=== PATIENT | female | born 1995 | race Caucasian/White ===

== ENCOUNTER 2016-04-25 16:25 | Inpatient (IN) | payer BC ==
[2016-04-25] MEDS ORDERED: ACETAMINOPHEN TAB 500 MG TAB PO STA (17:18)
--- NOTE | 2016-04-25 17:29 | ED ---
Psych HPI - General Chief Complaint: Psychiatric Symptoms Stated Complaint: Mental Health Time Seen by Provider: 04/25/16 16:35 Source: patient, EMS, RN notes reviewed Mode of arrival: EMS - History of Present Illness Initial Comments: Patient is a 20-year-old female presents emergency room for psychiatric evaluation. Patient states she's been very depressed over the past few months. Patient denies any history of depression. Patient states she's on medications for ADD. Patient states she went and saw her counselor today because of increased depression and suicidal thoughts. Patient states that she was sent here by her counselor for further evaluation. Patient states she's been having continuous thoughts and wanted to end her life. Patient denies any specific plan. Patient denies homicidal ideations. Patient denies visual or auditory hallucinations. Patient denies any significant past medical history. Patient does admit that she's been having headache from crying. Patient denies dizziness, chest pain, shortness of breath, nausea, vomiting, abdominal pain, consultation, diarrhea, fevers, chills. - Related Data Home Medications Medication Instructions Recorded Confirmed Methylphenidate HCl [Concerta] 54 mg PO DAILY 04/25/16 04/25/16 Allergies Allergy/AdvReac Type Severity Reaction Status Date / Time No Known Allergies Allergy Verified 04/25/16 16:55 Review of Systems ROS Statement: Those systems with pertinent positive or pertinent negative responses have been documented in the HPI. ROS Other: All systems not noted in ROS Statement are negative. Past Medical History Past Medical History: No Reported History History of Any Multi-Drug Resistant Organisms: None Reported Past Surgical History: No Surgical Hx Reported Past Psychological History: ADD/ADHD Smoking Status: Never smoker Past Alcohol Use History: None Reported Past Drug Use History: None Reported General Exam - General Exam Comments Initial Comments: Sitting in exam room, tearful, no acute distress. Limitations: no limitations General appearance: alert, in no apparent distress Head exam: Present: atraumatic, normocephalic, normal inspection Eye exam: Present: normal appearance ENT exam: Present: normal exam Neck exam: Present: normal inspection Respiratory exam: Present: normal lung sounds bilaterally. Absent: respiratory distress Cardiovascular Exam: Present: regular rate, normal rhythm, normal heart sounds GI/Abdominal exam: Present: soft, normal bowel sounds. Absent: distended, tenderness, guarding, rebound, rigid Extremities exam: Present: normal inspection Back exam: Present: normal inspection Neurological exam: Present: alert, oriented X3, CN II-XII intact, normal gait Psychiatric exam: Present: normal affect, depressed Skin exam: Present: warm, dry, intact, normal color. Absent: rash Course Vital Signs 04/25/16 16:25 Temperature 97.9 F Pulse Rate 95 Respiratory 20 Rate Blood Pressure 116/70 O2 Sat by Pulse 100 Oximetry Medical Decision Making - Medical Decision Making Patient is a 20-year-old female since emergency room for psychiatric evaluation. Patient is medically cleared for psych evaluation. Patient evaluated by psych and needs admission criteria. Disposition Clinical Impression: Suicidal ideation, Depression Disposition: ADMITTED IP TO THIS HOSP Condition: Stable Decision Date: 04/25/16
[2016-04-25 20:06] VITALS: BMI 19.9
[2016-04-25] MEDS ORDERED: ZIPRASIDONE 20 MG VIAL IM PRN (21:38)
[2016-04-25] MEDS ORDERED: ACETAMINOPHEN TAB 325 MG TAB PO PRN (21:38)
[2016-04-25] MEDS ORDERED: MAG HYDROX/AL HYDROX/SIMETH 30 ML CUP PO PRN (21:38)
[2016-04-25] MEDS ORDERED: LORazepam 2 MG/ML SYRINGE IM PRN (21:40)
[2016-04-25] MEDS ORDERED: LORazepam 1 MG TAB PO PRN (21:40)
--- NOTE | 2016-04-26 08:40 | P.HP ---
Psychiatric H&P - . History & Physical: Allergies Allergy/AdvReac Type Severity Reaction Status Date / Time No Known Allergies Allergy Verified 04/25/16 20:12 Vital Signs Temp 98.4 F 04/26/16 06:29 Pulse 81 04/26/16 06:29 Resp 16 04/26/16 06:29 BP 102/56 04/26/16 06:29 Pulse Ox 96 04/25/16 20:17 Intake & Output 04/25/16 04/26/16 04/26/16 18:59 06:59 18:59 Weight 57.8 kg Laboratory Last Values Urine HCG, Qual Not Detected (Not Detectd) 04/25/16 19:30 Urine Opiates Screen Not Detected (NotDetected) 04/25/16 19:30 Ur Oxycodone Screen Not Detected (NotDetected) 04/25/16 19:30 Urine Methadone Screen Not Detected (NotDetected) 04/25/16 19:30 Ur Propoxyphene Screen Not Detected (NotDetected) 04/25/16 19:30 Ur Barbiturates Screen Not Detected (NotDetected) 04/25/16 19:30 U Tricyclic Antidepress Not Detected (NotDetected) 04/25/16 19:30 Ur Phencyclidine Scrn Not Detected (NotDetected) 04/25/16 19:30 Ur Amphetamines Screen Not Detected (NotDetected) 04/25/16 19:30 U Methamphetamines Scrn Not Detected (NotDetected) 04/25/16 19:30 U Benzodiazepines Scrn Not Detected (NotDetected) 04/25/16 19:30 Urine Cocaine Screen Not Detected (NotDetected) 04/25/16 19:30 U Marijuana (THC) Screen Not Detected (NotDetected) 04/25/16 19:30 04/26/16 08:30 IDENTIFYING DATA: This patient is a 20-year-old single female presenting to the mental health unit through the emergency room for acute suicidal ideation. HPI: The patient presented to the emergency room as directed by her therapist at [facility]. The patient had reported to her that she was having acute suicidal thoughts. The patient reports that she has been suffering symptoms of depression for the last 2-3 years and they have been markedly more severe since this past January. She reports in January she attempted suicide with an overdose of [id number] sleeping pills. After that attempt she states she woke up and didn't tell anybody. She feels hopeless, she has been tearful on a regular basis, she has been excessively sleeping with low energy. Appetite has been diminished and she feels that she's been steadily losing weight. It appears these acute suicidal thoughts are recently precipitated by receiving an eviction notice. She states that she is in subsidized housing and has waited a long time to get in but her waitressing job doesn't cover the rent. She is endorsing no panic attacks, she does not report excessive daily anxiety other than stress related to her finances. No obsessive-compulsive thoughts, no eating disorder symptoms. She reports no history of hypomanic or manic episodes. She denies having any auditory or visual hallucinations and is endorsing no specific delusions as we reviewed several types. She is reporting no thoughts of harming others. She has no firearms at home. She feels isolated from her family and friends. She reports her family just doesn't understand depression and would tell her to "just be happy". She is reporting no recent relationship breakups and no significant other at this time. PAST PSYCHIATRIC HISTORY: This is her first inpatient psychiatric hospitalization, she did have a suicide attempt back in January as noted with sleeping pills. She has been previously diagnosed with ADHD and treated with Concerta 54 mg but states she feels "robotic" on it and does not wish to take that medication any longer. She has never been on any medication for depression or anxiety. She has just initiated care with a therapist yesterday at [facility]. PMH: None reported ALLERGIES: NO KNOWN DRUG ALLERGIES MEDICATIONS: Previously taking Concerta CHEMICAL DEPENDENCY HISTORY: She reports no use of alcohol or marijuana or any other illicit drugs. She states she's never been placed in residential treatment for chemical dependency reasons. FAMILY PSYCHIATRIC HISTORY: Unknown, she does not know her biological father, no suicides in the family FAMILY CHEMICAL DEPENDENCY HISTORY: None reported SOCIAL HISTORY: The patient is 20 years old she single, she has no children. She lives alone in her own subsidized apartment in [place]. 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 She has a high school education, her GPA was 2.9 upon graduation. She states she does not know what she wants to do careerwise and because of her depression has made no efforts to further her schooling. No history of service. She has 2 brothers and 2 sisters. She reports having a good relationship with her mother and stepfather. She is from [place] and was raised by her mother and stepfather. Her stepfather was in the picture since she was 3. She reports no legal history, and she reports no history of abuse. There is no history of any experienced traumatic events. MENTAL STATUS EXAM: The patient is a thin female appearing her stated age. She has a disheveled appearance she is dressed in her own clothing. Eye contact is appropriate she reports a markedly depressed mood she is tearful throughout the session. She reports having hopelessness thinking with ongoing suicidal thoughts. Speech is fluent and spontaneous nonpressured. Process is linear there is no evidence of circumstantial or tangential thinking no loose associations or flight of ideas. No homicidal ideation, no report or evidence of psychosis. Insight and judgment limited at this time. Cognitively she is alert and oriented to person place and date she is able to spell world backwards. Short-term memory is grossly intact she is able to recall recent events in the last few days. There is no verbal or physical aggressiveness demonstrated. STRENGTHS/WEAKNESSES: Strengths: Willingness to seek out help and utilize medication weaknesses: Financial, impending eviction, presumed underutilization of family support INTELLECTUAL FUNCTIONING: Average IMPRESSIONS: [] 1. Major depressive disorder recurrent severe without psychosis 2. Underutilized sedation of supports, impending eviction, under employment PLAN: The patient has been admitted to the mental health unit she is here voluntarily. We reviewed her symptoms and medication options and decided to initiate Lexapro 10 mg daily for depressive symptoms. We discussed the potential benefits and side effects of Lexapro and her questions were answered. We will monitor her for safety and encourage her participation in the milieu. We will request a routine medical consultation. Social work will meet with the patient to complete a psychosocial assessment and begin discharge planning. We will involve family and other supports as she will allow in treatment and discharge planning. Vital signs reviewed, labs reviewed. Urine test negative. Urine drug screen negative.
[2016-04-26] MEDS: ESCITALOPRAM 10 MG TAB PO SCH (09:43)
--- NOTE | 2016-04-26 13:25 | P.CONS ---
History of Present Illness - Reason for Consult Consult date: 04/26/16 Medical management - History of Present Illness This is a 20-year-old female. Her primary care physician is Dr. Lonnie Jarvis. She last saw him 3 weeks ago. He treats her for ADHD and she is on Concerta 54 mg daily. Patient verbalizes that she has had depression for some time and in January tried to commit suicide with overdose of sleeping pills. She states she was at home and did not seek treatment at the time. She states she has had ongoing depression with suicidal ideation worse very recently. She denies being on any antidepressants. Patient saw her counselor and was sent directly into [facility] for evaluation. Urine drug screen was negative. HCG negative. She was admitted to the mental health unit. She does complain of right knee pain for which Dr. Jarvis has ordered an x- ray in the outpatient setting and she was told it was okay. She denies any other medical concerns. Review of Systems All systems: negative Constitutional: Denies chills, Denies fever Eyes: denies blurred vision, denies pain Ears, nose, mouth and throat: Denies headache, Denies sore throat Cardiovascular: Denies chest pain, Denies shortness of breath Respiratory: Denies cough Gastrointestinal: Denies abdominal pain, Denies diarrhea, Denies nausea, Denies vomiting Genitourinary: Denies dysuria, Denies hematuria Musculoskeletal: Denies myalgias Integumentary: Denies pruritus, Denies rash Neurological: Denies numbness, Denies weakness Psychiatric: Reports depression, Reports hopelessness, Reports suicidal ideation , Denies anxiety Endocrine: Denies fatigue, Denies weight change Past Medical History Past Medical History: No Reported History History of Any Multi-Drug Resistant Organisms: None Reported Past Surgical History: No Surgical Hx Reported Past Psychological History: ADD/ADHD Smoking Status: Never smoker Past Alcohol Use History: None Reported Past Drug Use History: None Reported Additional Drug Use History / Comment(s): She is a lifelong nonsmoker. She denies any medical marijuana, marijuana, street drug use. She is currently living alone. She denies any alcohol use. - Past Family History Father Additional Family Medical History / Comment(s): Patient states that she does not know her dad. Mother Additional Family Medical History / Comment(s): Mother is alive at age 44 with history of anxiety. Brother(s) Additional Family Medical History / Comment(s): She has 2 brothers with no major medical problems. Patient has 2 sisters and patient is concerned that her 12-year-old sister may have some mental health issues. Patient does not have any children. Medications and Allergies Home Medications Medication Instructions Recorded Confirmed Type Methylphenidate HCl [Concerta] 54 mg PO DAILY 04/25/16 04/25/16 History Allergies Allergy/AdvReac Type Severity Reaction Status Date / Time No Known Allergies Allergy Verified 04/25/16 20:12 Physical Exam Vitals: Vital Signs Temp Pulse Resp BP Pulse Ox 04/26/16 06:29 98.4 F 81 16 102/56 04/25/16 20:17 97.7 F 89 14 116/75 96 04/25/16 20:02 97.7 F 89 14 116/75 96 Intake and Output 04/25/16 04/26/16 04/26/16 22:59 06:59 14:59 Other: Weight 57.8 kg Gen: This is a 20-year-old female. Patient has a flat affect and slightly tearful during evaluation. HEENT: Head is atraumatic, normocephalic. Pupils equal, round. Sclerae is anicteric. NECK: Supple. No JVD. No lymphadenopathy. No thyromegaly. LUNGS: Clear to auscultation. No wheezes or rhonchi. No intercostal retractions. HEART: Regular rate and rhythm. No murmur. ABDOMEN: Soft. Bowel sounds are present. No masses. No tenderness. EXTREMITIES: No pedal edema. No calf tenderness. NEUROLOGICAL: Patient is awake, alert and oriented x3. Cranial nerves 2 through 12 are grossly intact. Assessment and Plan Plan: 1. Depression recurrent with suicidal ideation. Patient admitted to the mental health unit. Continue current plan of care. 2. ADHD under the care of Dr. Jarvis. Patient is currently on Concerta 54 mg daily. 3. Chronic right knee pain with normal x-ray, stable. 4. No tobacco use. No need for nicotine patch. Impression and plan of care have been directed as dictated by the signing physician. Aliza Johnson nurse practitioner acting as scribe for signing physician. Cc: Dr. Lonnie Jarvis Time with Patient: Greater than 30
--- NOTE | 2016-04-27 08:23 | P.PN ---
Progress Note - Text Interval history: The patient is found in the dining room she follows me to an interview room. She reports that she did not sleep well last night and subsequently feels tired and "heavy". He discussed the initiation of the Lexapro her questions regarding that medication were answered. She did have a family meeting with her mother yesterday and overall felt it was supportive but no plans or made to help with her financial/living situation. She continues to feel depressed she has hopelessness thinking. Mental status exam: The patient is a tall thin female appearing her stated age. She has a disheveled appearance she is wearing her own clothing and is wrapped in a blanket. Eye contact is appropriate speech is mainly responsive to questions asked and not very spontaneous this morning. She endorses a depressed mood with hopelessness thinking. No homicidal ideation there is no evidence or report of psychosis area he does not appear hypomanic or manic. Thought process is linear there is no tangential thinking this associations or flight of ideas. Affect is very bland with little to no expression. Insight and judgment limited area and Plan: The patient will continue on the Lexapro as written we'll continue to assess her mood daily. She is encouraged to participate more fully in the milieu. She continues to report the same severity of depressive symptoms and at this point still has no plans as to what she will do upon discharge. I will confer with social work regarding the family meeting. Vital signs reviewed.
[2016-04-27] MEDS: ESCITALOPRAM 10 MG TAB PO SCH (09:31)
[2016-04-28] MEDS: ESCITALOPRAM 10 MG TAB PO SCH (09:07)
--- NOTE | 2016-04-28 11:21 | P.PN ---
Progress Note - Text Interval history: The patient is found in the hallway reading she follows me to an interview room. Staff report that she is making an effort to attend groups but is quiet. She reports that she woke up with her mood being less depressed today. She did sleep well last night and felt more relaxed allowing her to sleep. Appetite stable. She reports that she is not used to eating 3 meals a day. We discussed some problem solving upon discharge. She reports that she will be looking for a cheaper apartment and also plans on getting a dog as a therapy animal. She is experiencing no side effects from the Lexapro at this point and has no questions or concerns regarding that medication. Mental status exam: The patient is alert she is dressed in her own clothing she is wrapped in a blanket. She has a disheveled appearance. She is more interactive today and demonstrates more affective range. She reports some improvement in mood she feels safe here in the hospital she is reporting no homicidal ideation. There is no evidence of psychosis hypomania or flora. There is no verbal or physical aggressiveness demonstrated. Insight and judgment are improving. Plan: The patient will continue on her current medication we will monitor her for safety. We will assess her daily. Vital signs reviewed. I anticipate discharging her early next week if there is sufficient clinical improvement.
[2016-04-29 06:51] VITALS: RESP 16
[2016-04-29] MEDS: ESCITALOPRAM 10 MG TAB PO SCH (09:10)
--- NOTE | 2016-04-29 09:49 | P.PN ---
Progress Note - Text Interval history: The patient is found in group she follows me to an interview room. She reports that her mood is improving. She has been able to sleep throughout the night and states that she feels rested but immediately upon awakening she feels tired for about one hour. This may be related to caffeine withdrawal as she reports drinking more than 12 cups of coffee a day prior to the admission. She has no questions or concerns related to the Lexapro. She has been making more of an effort to attend groups. Mental status exam: The patient is alert she is dressed in her own clothing she is wrapped in a blanket over top. Eye contacts appropriate speech is fluent spontaneous nonpressured. She has a disheveled appearance. She reports her mood is improving she denies having any acute suicidal or homicidal ideation intent or plan. There is no evidence of psychosis hypomania or flora. Insight and judgment improving. There is no verbal or physical aggressiveness demonstrated. Affect demonstrates more arrange. Plan: The patient will continue on the Lexapro we will continue to monitor her for safety. Vital signs are reviewed. If she demonstrates sufficient clinical improvement we will consider discharge Sunday.
[2016-04-30] MEDS: ESCITALOPRAM 10 MG TAB PO SCH (09:39)
--- NOTE | 2016-04-30 10:49 | P.PN ---
Progress Note - Text Interval history: The patient is found in group she follows me to an interview room. She states that she feels tired but mood is otherwise good. She had a visit from her friend and and and that was helpful. She appears to be appropriately socializing with her roommate here on the mental health unit. She states mood [place] this is the best she has felt in a long time. She has no questions or concerns regarding the Lexapro. She is trying to nurture future oriented thinking. Mental status exam: The patient is seated calmly she is dressed in her own clothing and is wrapped in a blanket. Eye contact is appropriate speech is fluent spontaneous nonpressured. She reports her mood is improving affect is appearing more euthymic. She denies having any hopelessness thinking or any acute suicidal ideation intent or plan. No homicidal ideation intent or plan. There is no report or evidence of psychosis, she is reporting no hypomanic or manic symptoms there is no evidence of hypomania or flora. Insight and judgment improving. She remains cognitively intact. There is no verbal or physical aggressiveness demonstrated. Plan: The patient will continue on her current psychotropic medication the Lexapro 10 mg daily. I anticipate discharging her tomorrow if she remains clinically stable. We will continue to monitor for safety
[2016-05-01 06:21] VITALS: BP 92/52; PULSE 75; TEMP 98.1
--- NOTE | 2016-05-01 08:20 | P.DS ---
Providers Date of admission: 04/25/16 19:29 Expected date of discharge: 05/01/16 Attending physician: Boyd Ramirez Consults: 04/25/16 21:38 Consult Physician Routine Consulting Provider: Jose Luis Kong Consult Reason/Comments: Follow up H & P Do you want consulting provider notified?: Yes, Notify in am Primary care physician: Lonnie Jarvis - Discharge Diagnosis(es) (1) Major depressive disorder, recurrent severe without psychotic features Current Visit: Yes Status: Acute Priority: High Hospital Course: Brief summary of admission note: This patient is a 20-year-old single female who presented to the emergency room with worsening symptoms of depression and suicidal ideation. She had met with her therapist for the first time and was directed to the emergency room for depressive symptoms. She described having tearfulness, low energy, decreased appetite and hopelessness thinking. She described having a suicide attempt in January with sleeping pills. She did not present for help after that attempt. The most recent suicidal ideation was precipitated by receiving an eviction notice from her subsidized housing. For full details please refer to my psychiatric evaluation dictated 04/26/2016 Summary of Hospital course of treatment. The patient was admitted to the mental health unit she signed in voluntarily. We reviewed her symptoms and medication options and initiated Lexapro 10 mg daily. A routine medical consultation was ordered. The patient participated in groups and demonstrated no agitated behavior. She has reported a progressive improvement of symptoms while here. She did participate in a family meeting with her mother and found that to be productive. She has reported a resolution of any suicidal ideation. She plans on continuing with individual psychotherapy upon discharge. Mental status exam: The patient is alert she appears her stated age, she is dressed in her own clothing eye contact is appropriate. Speech is fluent and spontaneous nonpressured. Thought process is linear and goal-directed. There is no evidence of circumstantial thinking tangential thinking loose associations or flight of ideas. She reports no suicidal or homicidal ideation intent or plan. Mood is described as "better". Affect is appropriately expressive. There is no report or evidence of hallucinations or specific delusions. She does not appear hypomanic or manic. Insight and judgment have improved. There is no demonstration of verbal or physical aggressiveness. Cognitively she remains grossly intact and is alert and oriented to person place and date. Impressions 1. Major depressive disorder recurrent severe without psychosis 2. Psychosocial stressors include financial concerns Plan: The patient will be discharged from the mental health unit today to return home. Social work will arrange for outpatient mental health follow-up. She will continue on Lexapro 10 mg daily. There is no imminent safety risk she is appropriate for continued care as an outpatient. She is instructed to return to the hospital with any acute safety concerns. She reports no use of alcohol or illicit drugs and she is instructed to continue abstaining. Patient Condition at Discharge: Stable Plan - Discharge Summary New Discharge Prescriptions: Escitalopram [Lexapro] 10 mg PO DAILY #30 tab Discharge Medication List Escitalopram [Lexapro] 10 mg PO DAILY #30 tab 05/01/16 [Rx] Follow up Appointment(s)/Referral(s): Marybeth [employer] Teacher Maria L Hartley [Outside] - 05/05/16 11:00 am (Lonnie Liang MD [Primary Care Provider] - 1 Week
[2016-05-01] MEDS: ESCITALOPRAM 10 MG TAB PO SCH (09:19)
== END 2016-05-01 11:45 | disposition home or self-care (01) | DRG 885 ==
LOC: EC 16:25 → 3MHU 19:29
PROVIDERS: ADMIT Psychiatry & Neurology Psychiatry; ATTEND Psychiatry & Neurology Psychiatry
DX: F33.2 Major depressive disorder, recurrent severe without psychotic features (principal); R45.851 Suicidal ideations
CPT/HCPCS: 80306; 81025; 82075; 99285

== ENCOUNTER 2018-02-12 05:59 | Day surgery (SDC) | payer BC ==
[2018-02-06 11:21] VITALS: BMI 23.0
[~2018-02-12 05:59] MED LIST: DEXAMETHASONE SOD PHOSPHATE 10 MG/ML 1 ML VIAL IV ONE; LIDOCAINE 1% 20 ML VIAL (10MG/ML) FOR IV START INTRADERMA PRN; MIDAZOLAM 2 MG/2 ML VIAL IV PRN; ONDANSETRON 4 MG/2 ML VIAL IVP ONE; Pre Op ABX Message 1 EACH MISC MISCELLANE ONE; SCOPOLAMINE 1.5MG/72HR PATCH TRANSDERM ONE
[2018-02-12] MEDS: LACTATED RINGERS 1,000 ML IV SCH ×2 (07:16→07:34)
[2018-02-12] MEDS: ACETAMINOPHEN IV (For NPO) 1,000 MG in EMPTY BAG 1 BAG IVPB ONE ×2 (07:21→07:35)
[2018-02-12] MEDS ORDERED: PROPOFOL 10 MG/ML 20 ML VIAL IV ONE (07:37)
[2018-02-12] MEDS ORDERED: MIDAZOLAM 2 MG/2 ML VIAL ONE (07:37)
[2018-02-12] MEDS ORDERED: KETOROLAC 30 MG/ML 1 ML VIAL ONE (07:37)
[2018-02-12] MEDS ORDERED: fentaNYL (PF) 50 MCG/ML 2 ML AMP ONE (07:37)
[2018-02-12] MEDS ORDERED: LIDOCAINE 1% INJ 10MG/ML (20 ML MDV) ONE (07:37)
[2018-02-12] MEDS ORDERED: SUCCINYLCHOLINE CHLORIDE 100 MG/5 ML SYR IV ONE (07:37)
[2018-02-12] MEDS ORDERED: BUPIVACAINE (PF) 0.25% 30 ML VIAL SQ ONE ×2 (07:52)
--- NOTE | 2018-02-12 08:22 | P.OP ---
Date of Procedure: 02/12/18 Preoperative Diagnosis: Undesired fertility, desires permanent sterilization Postoperative Diagnosis: Same Procedure(s) Performed: Laparoscopic tubal ligation Anesthesia: GETA Surgeon: Elizabeth Luis Estimated Blood Loss (ml): 2 IV fluids (ml): 700 Urine output (ml): 100 Pathology: none sent Condition: stable Disposition: PACU Indications for Procedure: Patient requests long discussion given her age about permanence of the procedure after a long discussion and multiple questions patient wished to proceed all of this was done in the office prior to surgery date. Operative Findings: Normal pelvic anatomy Description of Procedure: Patient was seen in the preoperative suite informed consent was obtained and once again she was counseled on the permanence of sterilization she states understanding and wishes to proceed next She was taken to the operating suite general anesthesia was obtained by the anesthesia department. She was then prepped and draped in the normal sterile fashion in dorsal lithotomy position. Red rubber catheter was then used to drain the bladder of clear yellow urine. Weighted speculum was placed in the posterior vaginal vault the anterior lip of the cervix was visualized and grasped with a single-tooth tenaculum. An acorn uterine middle ear was advanced into the uterine cervix as a means to manipulative uterus throughout the procedure. Attention was then turned to the patient's abdomen where in the umbilical fold a small incision is made through this incision the Veress needle was placed once the Veress needle was deemed to be the appropriate position with a drop of CO2 pressure CO2 insufflation was allowed to occur. On inspection the patient's pelvis the above-noted findings are visualized. An additional port site is placed in the right lower quadrant this is an 8 mm port and operative port for the Falope ring applicator. The fallopian applicator is placed through the lower quadrant port the left fallopian tube was grasped and the instrument was fired. Small portion of tube was noted to be occluded. Attention then turned to the patient's right fallopian tube which was unable to be grasped with the Falope ring applicator therefore a Kleppinger was used to occlude the fallopian tube this was repeated on the other side to ensure sterilization. There was no bleeding noted hemostasis was appreciated. All instrument was removed from the patient's abdomen and the skin incisions were closed with 4-0 Vicryl in a subarticular fashion lidocaine was then injected into the incision site Steri-Strips and sterile dressings were applied as needed. Attention then turned to the patient's vaginal vault the middle ear was removed without difficulty hemostasis was noted from the tenaculum site on the anterior lip of the cervix. Next All counts were correct 2 patient tolerated procedure well and was taken the recovery room awake and in stable condition.
[2018-02-12 08:39] VITALS: TEMP 97.4
[2018-02-12] MEDS: HYDROmorphone 1 MG/ML 1 ML SYRINGE IVP PRN ×2 (08:42→08:47)
[2018-02-12] MEDS ORDERED: LACTATED RINGERS 1,000 ML IV ONE (08:49)
[2018-02-12 09:11] VITALS: RESP 18
[2018-02-12 10:21] VITALS: BP 116/80; PULSE 97
== END 2018-02-12 11:07 | disposition home or self-care (01) ==
LOC: OR 05:59
PROVIDERS: ATTEND Obstetrics & Gynecology Obstetrics
DX: Z30.2 Encounter for sterilization (principal); N92.0 Excessive and frequent menstruation with regular cycle; Z79.899 Other long term (current) drug therapy
CPT/HCPCS: 81025; 58671; J2250; J1100; J2405; J2001; J3010; J1885; J1170; J0131; J0330; J2704